=== PATIENT | female | born 1940 | race Caucasian/White ===

== ENCOUNTER → 2019-12-14 07:08 | Outpatient (CLI) | payer MEDICARE, OTHER, SELFPAY ==
[2019-12-14 07:37] LABS: Add Manual Diff / Slide Review NO; Basophils Absolute Auto 0 /uL (0-100); Basophils Percent Auto 0.8 % (0-2); Eosinophils Absolute Auto 100 /uL (0-450); Eosinophils Percent Auto 2.9 % (2-4); Hematocrit 42.6 % (36-46); Hemoglobin 14.1 g/dL (12.0-16.0); Lymphocytes Absolute Auto 1900 /uL (1100-4500); Mean Corpuscular HGB Conc 33.1 % (30-36); Mean Corpuscular Hemoglobin 30.2 PG (26-34); Mean Corpuscular Volume 91.1 fL (80-100); Monocytes Absolute Auto 400 /uL (0-900); Monocytes Percent Auto 8.7 % (3-14); Neutrophils Absolute Auto 2000 /uL (1500-7000); Neutrophils Percent Auto 44.6 % (50-75); Platelet Count 259 X10^3/uL (150-400); Red Blood Cell Count 4.68 X10^6/uL (4.0-5.2); Red Cell Distribution Width 13.9 % (11.6-14.8); White Blood Cell Count 4.5 X10^3/uL (4.5-11.0)
[2019-12-14 07:58] LABS: Alanine Aminotransferase 30 IU/L (<35); Albumin 4.2 g/dL (3.5-5.0); Albumin Globulin Ratio 1.3 (1.0-2.8); Alkaline Phosphatase 36 U/L (38-126); Aspartate Aminotransferase 26 IU/L (14-36); BUN Creatinine Ratio 15.6 (6-22); Bilirubin Total 0.6 mg/dL (0.2-1.3); Blood Urea Nitrogen 12 mg/dL (7-17); Calcium 9.4 mg/dL (8.4-10.2); Carbon Dioxide 30 mmol/L (22-32); Chloride 106 mmol/L (98-107); Cholesterol 194 mg/dL (140-199); Estimated Glomerular Filt Rate > 60.0 mL/min (>60); Globulin 3.3 g/dL (1.7-4.1); Glucose 105 mg/dL (80-110); HDL Cholesterol 44 mg/dL (40-60); HEMOLYSIS < 15 (0-50); LDL Cholesterol Calculated 123 mg/dL (<100); Potassium 4.4 mmol/L (3.4-5.1); Sodium 139 mmol/L (137-145); Total Protein 7.5 g/dL (6.3-8.2); Triglycerides 135 mg/dL (35-150)
[2019-12-14 08:36] LABS: TSH w/ Reflex to FT4 4.02 uIU/mL (0.47-4.68)
== END ==
PROVIDERS: PCP Registered Nurse Diabetes Educator; Referring Provider Registered Nurse Diabetes Educator; Visit Provider Registered Nurse Diabetes Educator
DX: R73.01 Impaired fasting glucose (principal); E78.5 Hyperlipidemia, unspecified; Z00.00 Encounter for general adult medical examination without abnormal findings
CPT/HCPCS: 36415; 80053; 80061; 84443; 85025

== ENCOUNTER 2023-10-31 10:03 | Emergency (ER) | payer MEDICARE, OTHER, SELFPAY ==
[2023-10-31 10:12] VITALS: BP 160/70; PULSE 71; RESP 16; TEMP 36.6; O2SAT 93
[2023-10-31 10:13] VITALS: BP 160/70; PULSE 70; RESP 14; TEMP 36.6; O2SAT 93; BMI 31.1
--- NOTE | 2023-10-31 10:16 | DI.RAD.S_ITS ---
PROCEDURE: XR ANKLE RT MIN 3V INDICATIONS: fall, twisted right ankle TECHNIQUE: 3 views of the ankle were acquired. COMPARISON: None. FINDINGS: Bones: Tiny curvilinear calcifications along the distal lateral malleolus. Tiny calcifications along the distal tip of the medial malleolus. Ankle mortise is normally aligned. No suspicious bony lesions. Soft tissues: Moderate tibiotalar joint effusion. Calcaneal enthesophytes. IMPRESSION: Small avulsion fractures of the medial and lateral malleolus. Dictated by: Kiko Catherine M.D. on 10/31/2023 at 10:05 Approved by: Kiko Catherine M.D. on 10/31/2023 at 10:08
--- NOTE | 2023-10-31 10:16 | ED.LOWEXIN ---
HPI - Extremity Injury (Lower) General Chief Complaint: Extremity Injury, Lower Stated Complaint: ankle injury Time Seen by Provider: 10/31/23 10:14 Source: patient and family Mode of arrival: Wheelchair History of Present Illness HPI Narrative: Patient is an 83-year-old female here for evaluation of a right ankle injury. Patient states that this morning she got up to use the restroom. She states she turned in order to look out the window at the [place] and lost her balance and landed on her right ankle. Has been ambulatory but does have swelling on the outside of the ankle. No other injuries from the event. Related Data Home Medications Medication Instructions Recorded Confirmed No Known Home Medications 12/13/19 12/13/19 Allergies Allergy/AdvReac Type Severity Reaction Status Date / Time Penicillins Allergy Severe rash Verified 10/31/23 10:15 Review of Systems Musculoskeletal Musculoskeletal: Reports system reviewed and no additional complaints, except as documented Integumentary/Breasts Skin/Breast: Reports system reviewed and no additional complaints, except as documented Neurologic Neurologic: Reports system reviewed and no additional complaints, except as documented Patient History Medical History Overweight Surgical History (Updated 12/15/19 @ 21:18 by Darya Roberts) Anesthesia History of hysterectomy (~03/1981) Family History (Updated 12/15/19 @ 21:18 by Darya Roberts) Grandmother Cancer Grandmother History of heart disease Social History Smoking Status: Never smoker Smoking Status: Never smoker alcohol intake frequency: 3 or more drinks per day Alcohol type: wine Substance Use Type: does not use Exam Initial Vital Signs Initial Vital Signs: Vital Signs Temperature 97.8 F 10/31/23 10:12 Pulse Rate 71 10/31/23 10:12 Respiratory Rate 16 10/31/23 10:12 Blood Pressure 160/70 H 10/31/23 10:12 Pulse Oximetry 93 10/31/23 10:12 Oxygen Delivery Method Room Air 10/31/23 10:12 Skin Other: Bruising to the lateral malleolus of the right ankle Neuro Sensory Exam: no sensory deficits noted Extrem Other: No proximal fibular tenderness. No Achilles tenderness. No tenderness along the dorsum of the foot. No tenderness of the base of the 5th metatarsal. Discomfort seems to be isolated to the lateral malleolus. Procedures Orthopedic Splinting/Casting Injury #1: Side: right Lower Extremity Injury Location: ankle Lower Extremity Immobilizer: boot orthosis Post splinting neuro exam: intact Post splinting vascular exam: intact Placed by: Nursing Course Orders Ordered: ED Orders 10/31/23 10:16 XR ankle RT min 3V Stat Vital Signs Vital signs: Vital Signs - 8 hr 10/31/23 10:12 10/31/23 10:13 Temperature 97.8 F 97.8 F Pulse Rate 71 70 Respiratory Rate 16 14 Blood Pressure 160/70 H 160/70 H Pulse Oximetry 93 93 Oxygen Delivery Method Room Air Room Air MDM - Extremity Injury (Lower) Imaging Data Extremity x-ray #1: Radiologist's Impression: PROCEDURE: XR ANKLE RT MIN 3V INDICATIONS: fall, twisted right ankle TECHNIQUE: 3 views of the ankle were acquired. COMPARISON: None. FINDINGS: Bones: Tiny curvilinear calcifications along the distal lateral malleolus. Tiny calcifications along the distal tip of the medial malleolus. Ankle mortise is normally aligned. No suspicious bony lesions. Soft tissues: Moderate tibiotalar joint effusion. Calcaneal enthesophytes. IMPRESSION: Small avulsion fractures of the medial and lateral malleolus. [facility] Narrative Medical decision making narrative: X-ray shows what appears to be avulsion fractures of both the medial and lateral malleolus. She does have quite a bit of tenderness over the lateral malleolus. Does have minor tenderness over the medial malleolus as well. Unsure whether or not these fractures are new or old but we will treat them as being new. I discussed this with the patient. We will put her in a boot. Ambulate as tolerated. Ice. She was given return precautions and follow-up instructions. She expressed understanding and agreement. Discharge Plan Departure Patient Disposition: Home Clinical Impression: Avulsion fracture of ankle Instructions: DI for Avulsion Fracture, How To Perform RICE (Rest, Ice, Compress, Elevate), How to Use a Walking Boot Activity Restrictions/Additional Instructions: I would recommend that for the next 7-10 days while you are up and walking that you wear the orthopedic boot. You can take it off at night to sleep. When you are sitting at home make sure that your foot is elevated and use ice. Once the discomfort and swelling improve you can start to transition out of the boot and walk on your ankle as tolerated. Return to the emergency department for new symptoms. Prescriptions: No Action No Known Home Medications Referrals: Donnell Pham ARNP [Primary Care Provider] - Stand Alone Forms: Patient Portal/API
--- NOTE | 2023-10-31 11:39 | PC.NURSE ---
Pt states she fell on right foot and noticed it was deformed. Swelling and tenderness noted. cap refill <2 seconds
[2023-10-31 11:40] VITALS: RESP 16
--- NOTE | 2023-10-31 11:40 | PC.NURSE ---
Ice pack given to pt by COLLATOR on arrival
== END 2023-10-31 11:41 | disposition home or self-care (01) ==
PROVIDERS: Emergency Provider Emergency Medicine; PCP Registered Nurse Diabetes Educator
DX: S82.61XA Displaced fracture of lateral malleolus of right fibula, initial encounter for closed fracture (principal); W18.30XA Fall on same level, unspecified, initial encounter
CPT/HCPCS: 73610; 99282; 99283